=== PATIENT | female | born 1930 | race Caucasian/White ===

== ENCOUNTER → 2017-01-01 | Outpatient (CLI) | payer MEDICARE, OTHER ==
[~2017-01-01] MED LIST: CALTTAB2 PO; CINNAMON PO; CITA20TA4 PO; COUM5TAB PO; LEVA500T PO; METO-426 PO; PRAV20TA2 PO; PRAV20TA67 PO; PROT40TA PO; SUCR1S PO; ULTR50TA5 PO; WARF-18 PO; WARF-23 PO; ZOLP10TA3 PO; ZOLP5TAB3 PO
[2017-01-01 13:30] LABS: HEMATOCRIT 41.4 % (35.0-46.0); MEAN CELL VOLUME 90.4 FL (80.0-100.0); MEAN CORPUSCULAR HEMOGLOBIN 29.8 PG (27.0-34.0); PLATELET COUNT 141 TH/MM3 (150-450); RED BLOOD COUNT 4.58 MIL/MM3 (4.00-5.30); REVIEW FLAG FINAL; WHITE BLOOD COUNT 3.7 TH/MM3 (4.0-11.0)
[2017-01-01 14:02] LABS: ANION GAP 6 MEQ/L (5-15); AST (GOT) 23 U/L (15-37); BICARBONATE 30.2 MEQ/L (21.0-32.0); BLOOD UREA NITROGEN 19 MG/DL (7-18); CHLORIDE 106 MEQ/L (98-107); GLOMERULAR FILTRATION RATE 66 ML/MIN (>89); SODIUM (NA) 142 MEQ/L (136-145)
[2017-01-01 14:10] LABS: ALKALINE PHOSPHATASE 69 U/L (45-117); ALT (GPT) 21 U/L (10-53); GLUCOSE,FASTING 107 MG/DL (74-99); HDL CHOLESTEROL 53.7 MG/DL (40.0-60.0); LDL CHOLESTEROL 70 MG/DL (0-99); LDL CHOLESTEROL DIRECT 78 MG/DL (0-99)
[2017-01-01 14:32] LABS: HEMOGLOBIN A1b 1.6 %; HEMOGLOBIN Ao 85.8 %; HEMOGLOBIN P3 3.6 %
== END ==
LOC: PLAB 10:20
PROVIDERS: ATTEND Family Medicine
DX: E11.9 Type 2 diabetes mellitus without complications (principal); E78.2 Mixed hyperlipidemia; I10 Essential (primary) hypertension; I48.91 Unspecified atrial fibrillation
CPT/HCPCS: 36415; 80053; 80061; 83036; 83721; 85027

== ENCOUNTER 2017-01-17 09:31 | Emergency (ER) | payer MEDICARE, OTHER ==
[~2017-01-17] VITALS: Ht 157.5 cm; Wt 87.0 kg
[~2017-01-17 09:31] MED LIST changes: -CITA20TA4 PO; -METO-426 PO; -PRAV20TA2 PO; -ULTR50TA5 PO; -WARF-18 PO; -WARF-23 PO; -ZOLP5TAB3 PO
[2017-01-17 09:36] VITALS: BP 108/59; PULSE 61; RESP 16; TEMP 97.5; O2SAT 97
--- NOTE | 2017-01-17 09:50 | PD ---
HPI Chief Complaint: Fall Time Seen by Provider: 09:47 Travel History International Travel<30 days: No Contact w/Intl Traveler<30days: No Traveled to known affect area: No History of Present Illness HPI S/P TRIP AND FALL TODAY, LANDING ON HER LEFT FLANK AREA, NOW C/O LEFT FLANK/RIB PAIN PFSH Past Medical History Hx Anticoagulant Therapy: Yes (COUMADIN) Atrial Fibrillation: Yes Cardiovascular Problems: Yes High Cholesterol: Yes Diabetes: Yes (DIET CONTROLLED) Triglycerides - High: Yes Menopausal: Yes Past Surgical History Appendectomy: Yes ( A CHILD) Cholecystectomy: Yes (IN THE 70'S) Eye Surgery: Yes (CATARACT) Genitourinary Surgery: Yes (BLADDER SUSPENSION) Hysterectomy: Yes (LATE ) Social History Alcohol Use: No Tobacco Use: No Substance Use: No Allergies-Medications (Allergen,Severity, Reaction): Coded Allergies: Adhesives (Unverified Allergy, Intermediate, Irritation, 01/17/17) Codeine (Unverified Allergy, Intermediate, Hives, 01/17/17) Darvocet-N 100 (Unverified Allergy, Intermediate, Nausea/Vomiting, 01/17/17) Percocet (Unverified Allergy, Intermediate, Nausea/Vomiting, 01/17/17) Zovirax (Unverified Allergy, Intermediate, Hives, 01/17/17) Reported Meds & Prescriptions Reported Meds & Active Scripts Active Reported Zolpidem (Zolpidem Tartrate) 5 Mg Tab 5 Mg PO HS Citalopram (Citalopram Hydrobromide) 20 Mg Tab 20 Mg PO DAILY Warfarin 5 Mg Tab 5 Mg PO ,,,,BENDER Warfarin 2.5 Mg Tab 2.5 Mg PO M.TH Metoprolol Tartrate 75 Mg Tab Unknown Dose PO BID Pravastatin 20 Mg Tab 20 Mg PO DAILY Review of Systems Except as stated in HPI: all other systems reviewed are Neg Musculoskeletal: Positive: Pain Physical Exam Narrative GENERAL: SKIN: Warm and dry. HEAD: Atraumatic. Normocephalic. EYES: Pupils equal and round. No scleral icterus. No injection or drainage. ENT: No nasal bleeding or discharge. Mucous membranes pink and moist. NECK: Trachea midline. No JVD. CARDIOVASCULAR: Regular rate and rhythm. RESPIRATORY: No accessory muscle use. Clear to auscultation. Breath sounds equal bilaterally. GASTROINTESTINAL: Abdomen soft, non-tender, nondistended. Hepatic and splenic margins not palpable. MUSCULOSKELETAL: Extremities without clubbing, cyanosis, or edema. No obvious deformities. TTP ALONG LEFT FLANK/LOWER COSTAL REGION, NO CREPITUS, GOOD LUNG SOUNDS, NO STRIDOR/WHEEZING ON EXAM NEUROLOGICAL: Awake and alert. No obvious cranial nerve deficits. Motor grossly within normal limits. Five out of 5 muscle strength in the arms and legs. Normal speech. PSYCHIATRIC: Appropriate mood and affect; insight and judgment normal. Data Data Last Documented VS Vital Signs Date Time Temp Pulse Resp B/P Pulse Ox O2 Delivery O2 Flow Rate FiO2 01/17/17 10:55 68 18 118/63 97 Room Air 01/17/17 09:36 97.5 Orders Tramadol (Ultram) (01/17/17 10:00) Ondansetron Odt (Zofran Odt) (01/17/17 10:00) Ct Thorax/ Chest Wo Iv Contras (01/17/17 ) MDM Medical Decision Making Medical Screen Exam Complete: Yes Emergency Medical Condition: Yes Medical Record Reviewed: Yes Differential Diagnosis CHEST WALL CONTUSION/ PTX/ PULM CONTUSION/ Narrative Course WILL EXAMINE WITH CT (PATIENT HAS DIFFICULTY MOVING MUCH, AND WILL PROBABLY EXPERIENCE MORE PAIN WITH RIB SERIES THAN WITH CT CHEST) PT IS ON COUMADIN AND IS CURRENTLY DENYING ANY BLEEDING OR ANY PAIN MEDICATION, STATES THAT SHE GETS NAUSEOUS AND VOMITS A LOT WITH JUST ABOUT ALL PAIN MEDICATIONS (DARVOCET/CODEINE /PERCOCET ETC) Diagnosis Primary Impression: Contusion of chest wall with intact skin Scripts Tramadol (Ultram)50 Mg Tab50 Mg PO Q6H PRN (PAIN) #20 TAB Ref 0 Prov:Mike Ellis MD 01/17/17 Disposition: 01 DISCHARGE HOME Condition: Stable Mike Ellis MD Jan 17, 2017 09:50
[2017-01-17] MEDS ORDERED: CITA20TA4 PO (09:54)
[2017-01-17] MEDS ORDERED: PRAV20TA2 PO (09:54)
[2017-01-17] MEDS ORDERED: METO-426 PO (09:54)
[2017-01-17] MEDS ORDERED: WARF-23 PO (09:54)
[2017-01-17] MEDS ORDERED: ZOLP5TAB3 PO (09:54)
[2017-01-17] MEDS ORDERED: WARF-18 PO (09:54)
[2017-01-17] MEDS ORDERED: ONDANSETRON ODT 4 MG TAB PO ONE (10:00)
[2017-01-17] MEDS ORDERED: traMADol HCL 50 MG TAB PO ONE (10:00)
[2017-01-17 10:55] VITALS: BP 118/63; PULSE 68; RESP 18; O2SAT 97
--- NOTE | 2017-01-17 10:58 | RADHPO ---
EXAM DATE/TIME: 01/17/2017 10:22 [facility] COMPARISON: No previous studies available for comparison. INDICATIONS : Fall. Left sided chest pain. Evaluate for pneumothorax. RADIATION DOSE: 20.88 CTDIvol (mGy) MEDICAL HISTORY : Anticoagulant therapy. SURGICAL HISTORY : Appendectomy. Cholecystectomy.Hysterectomy. ENCOUNTER: Initial ACUITY: 2 days PAIN SCALE: 7/10 LOCATION: Left chest TECHNIQUE: Volumetric scanning of the chest was performed. Using automated exposure control and adjustment of t he mA and/or kV according to patient size, radiation dose was kept as low as reasonably achievable to obtain optimal diagnostic quality images. FINDINGS: LUNGS: 3-4 mm nodular density in the left upper lobe on image #16. Lungs are otherwise clear. PLEURAE: There is no pleural thickening or pleural effusion. MEDIASTINUM: Diffuse aortic calcification and coronary artery calcification. Aortic diameter are within normal christy its. AXILLAE: Within normal limits. No lymphadenopathy. MUSCULOSKELETAL: Within normal limits for patient age. MISCELLANEOUS: Cholecystectomy clips. CONCLUSION: 1. No acute findings in the chest. No evidence of pneumothorax. 2. 3-4 mm nodular density in the left upper lung. The findings described above include a newly detected solid pulmonary nodule of <4 mm average diamete r. Guidelines from the Fleischner Society for the follow-up and management of newly detected indeterm inate pulmonary nodules in persons >34 years old depend on nodule size (average of length and width) and underlying risk factors (including smoking and other risk factors). Please consider the followin g recommendations after clinical assessment of risk factors. For 4 mm nodules: In low risk patients, no follow-up needed. In high risk patients, follow-up CT at 12 months; if unchanged, no further fol low-up. Abilio Calixto MD on January 17, 2017 at 10:52 Board Certified Radiologist. This report was verified electronically.
[2017-01-17 11:04] VITALS: RESP 16
[2017-01-17] MEDS ORDERED: ULTR50TA5 PO (11:05)
== END 2017-01-17 11:20 | disposition home or self-care (01) ==
LOC: PHED 09:31
DX: S20.212A Contusion of left front wall of thorax, initial encounter (principal); E11.9 Type 2 diabetes mellitus without complications; I48.91 Unspecified atrial fibrillation; E78.00 Pure hypercholesterolemia, unspecified; E78.1 Pure hyperglyceridemia; Z79.01 Long term (current) use of anticoagulants; W01.0XXA Fall on same level from slipping, tripping and stumbling without subsequent striking against object, initial encounter
CPT/HCPCS: 71250; 99285

== ENCOUNTER → 2017-05-18 | Outpatient (CLI) | payer MEDICARE, OTHER ==
[~2017-05-18] MED LIST changes: -CALTTAB2 PO; -CINNAMON PO; +CITA20TA4 PO; -COUM5TAB PO; -LEVA500T PO; +METO-426 PO; +PRAV20TA2 PO; -PRAV20TA67 PO; -PROT40TA PO; -SUCR1S PO; +ULTR50TA5 PO; +WARF-18 PO; +WARF-23 PO; -ZOLP10TA3 PO; +ZOLP5TAB3 PO
[2017-05-18 13:16] LABS: HEMATOCRIT 38.6 % (35.0-46.0); MEAN CORPUSCULAR HEMOGLOBIN 30.7 PG (27.0-34.0); MEAN CORPUSCULAR HGB CONC 33.4 % (32.0-36.0); PLATELET COUNT 158 TH/MM3 (150-450); RED CELL DISTRIBUTION WIDTH 13.8 % (11.6-17.2); REVIEW FLAG FINAL; WHITE BLOOD COUNT 5.6 TH/MM3 (4.0-11.0)
[2017-05-18 13:29] LABS: ANION GAP 7 MEQ/L (5-15); AST (GOT) 17 U/L (15-37); BICARBONATE 28.2 MEQ/L (21.0-32.0); BLOOD UREA NITROGEN 16 MG/DL (7-18); CHLORIDE 103 MEQ/L (98-107); GLOMERULAR FILTRATION RATE 58 ML/MIN (>89); GLUCOSE,FASTING 98 MG/DL (74-99); POTASSIUM 4.5 MEQ/L (3.5-5.1); SODIUM (NA) 138 MEQ/L (136-145)
[2017-05-18 13:35] LABS: ALKALINE PHOSPHATASE 75 U/L (45-117); ALT (GPT) 19 U/L (10-53); HDL CHOLESTEROL 57.6 MG/DL (40.0-60.0); LDL CHOLESTEROL 64 MG/DL (0-99); LDL CHOLESTEROL DIRECT 84 MG/DL (0-99)
[2017-05-18 16:49] LABS: HEMOGLOBIN A1a 0.9 %; HEMOGLOBIN A1b 1.7 %; HEMOGLOBIN Ao 85.5 %; HEMOGLOBIN P3 3.7 %
== END ==
LOC: PLAB 10:31
PROVIDERS: ATTEND Family Medicine
DX: E11.9 Type 2 diabetes mellitus without complications (principal); E78.5 Hyperlipidemia, unspecified; I10 Essential (primary) hypertension; I48.91 Unspecified atrial fibrillation
CPT/HCPCS: 36415; 80053; 80061; 83036; 83721; 85027

== ENCOUNTER → 2017-10-12 | Outpatient (CLI) | payer MEDICARE, OTHER ==
[~2017-10-12] MED LIST changes: +TRAM50 PO; -ULTR50TA5 PO
[2017-10-12 13:33] LABS: HEMOGLOBIN 13.3 GM/DL (11.6-15.3); MEAN CELL VOLUME 90.1 FL (80.0-100.0); MEAN CORPUSCULAR HEMOGLOBIN 30.7 PG (27.0-34.0); MEAN CORPUSCULAR HGB CONC 34.1 % (32.0-36.0); MEAN PLATELET VOLUME 9.6 FL (7.0-11.0); PLATELET COUNT 144 TH/MM3 (150-450); RED BLOOD COUNT 4.33 MIL/MM3 (4.00-5.30); RED CELL DISTRIBUTION WIDTH 14.3 % (11.6-17.2); WHITE BLOOD COUNT 3.6 TH/MM3 (4.0-11.0)
[2017-10-12 13:47] LABS: AST (GOT) 24 U/L (15-37); BICARBONATE 29.5 MEQ/L (21.0-32.0); BLOOD UREA NITROGEN 19 MG/DL (7-18); CALCIUM 9.2 MG/DL (8.5-10.1); CHLORIDE 105 MEQ/L (98-107); CREATININE 0.87 MG/DL (0.50-1.00); GLOMERULAR FILTRATION RATE 62 ML/MIN (>89); GLUCOSE,FASTING 108 MG/DL (74-99); SODIUM (NA) 140 MEQ/L (136-145)
[2017-10-12 13:59] LABS: ALKALINE PHOSPHATASE 68 U/L (45-117); ALT (GPT) 20 U/L (10-53); CHOLESTEROL 117 MG/DL (120-200); CHOLESTEROL/ HDL RATIO 2.31 RATIO; HDL CHOLESTEROL 50.6 MG/DL (40.0-60.0); LDL CHOLESTEROL 51 MG/DL (0-99); LDL CHOLESTEROL DIRECT 68 MG/DL (0-99); TOTAL BILIRUBIN ADULT 0.9 MG/DL (0.2-1.0); TOTAL PROTEIN 6.9 GM/DL (6.4-8.2); TRIGLYCERIDES 75 MG/DL (42-150)
[2017-10-12 15:34] LABS: HEMOGLOBIN A1C 5.8 % (4.3-6.0)
== END ==
LOC: PLAB 08:41
PROVIDERS: ATTEND Family Medicine
DX: E11.9 Type 2 diabetes mellitus without complications (principal); R53.83 Other fatigue; E78.5 Hyperlipidemia, unspecified; I10 Essential (primary) hypertension
CPT/HCPCS: 36415; 80053; 80061; 83036; 83721; 84443; 85027